=== PATIENT | male | born 1990 | race Caucasian/White ===

== ENCOUNTER 2016-07-16 11:58 | Emergency (ER) | payer MEDICARE, MEDICAID ==
[~2016-07-16] VITALS: Ht 170.2 cm; Wt 75.0 kg
[~2016-07-16 11:58] MED LIST: ARIP20TA8; CHOLESTEROL; LISI-167 PO
[2016-07-16 13:21] VITALS: BP 145/96
== END 2016-07-16 13:23 | disposition home or self-care (01) ==
LOC: ED 13:00
DX: S06.0X0A Concussion without loss of consciousness, initial encounter (principal); S00.93XA Contusion of unspecified part of head, initial encounter; I10 Essential (primary) hypertension; W01.0XXA Fall on same level from slipping, tripping and stumbling without subsequent striking against object, initial encounter; Y93.89 Activity, other specified; Y92.009 Unspecified place in unspecified non-institutional (private) residence as the place of occurrence of the external cause; Y99.9 Unspecified external cause status
CPT/HCPCS: 70450; 99284

== ENCOUNTER 2018-01-14 18:21 | Emergency (ER) | payer MEDICARE, MEDICAID ==
[~2018-01-14 18:21] MED LIST changes: +ARIP20TA5; -ARIP20TA8; +TRAZ-137 PO
[2018-01-14 18:38] VITALS: BP 140/90
[2018-01-14] MEDS ORDERED: OXYMETAZOLINE NASAL SPRAY 0.05%, 15ML NAS ONE (19:00)
[2018-01-14] MEDS ORDERED: OXYMETAZOLINE NASAL SPRAY 0.05%, 15ML ONE (19:05)
== END 2018-01-14 19:32 | disposition home or self-care (01) ==
LOC: ED 19:10
DX: R09.81 Nasal congestion (principal); F41.1 Generalized anxiety disorder; I10 Essential (primary) hypertension
CPT/HCPCS: 99283

== ENCOUNTER 2018-03-15 15:12 | Emergency (ER) | payer MEDICARE, MEDICAID ==
[~2018-03-15] VITALS: Ht 180.3 cm; Wt 85.0 kg
[2018-03-15 15:16] VITALS: BP 149/100
[2018-03-15] MEDS ORDERED: METF500T17 PO (15:40)
--- NOTE | 2018-03-15 15:41 | NUR ---
PT BIB MOTHER FROM HOME FOR INCREASING SWELLING TO EYE X 1 MONTH. hAS APPT WITH [facility] ON 03/22 BUT MOTHER STATES GETTING MUCH WORSE. MILDLY SWOLLEN AND RED. PT IS NON VERBAL.
--- NOTE | 2018-03-15 15:56 | NUR ---
FIRST CONTACT WITH PT. Pt's mom at bedside. ED MD and scribe at bedside. Per pt's mom, "Last month on there was an infection in right eye. It cleared up. Now he has infection in the left eye." Pt is non-verbal. NADN. Pt sitting on eye chair.
--- NOTE | 2018-03-15 16:05 | NUR ---
Pt not opening his eyes for examination by ED .
--- NOTE | 2018-03-15 17:11 | NUR ---
Patient and Caregiver given discharge instructions and they have confirmed that they understand the instructions. Patient ambulatory with steady gait. Pt and caregiver left with all personal belongings, discharge paperwork, and prescription.
== END 2018-03-15 17:14 | disposition home or self-care (01) ==
LOC: ED 16:43
DX: H16.292 Other keratoconjunctivitis, left eye (principal); F41.1 Generalized anxiety disorder; I10 Essential (primary) hypertension
CPT/HCPCS: 99283